=== PATIENT | male | born 1980 | race African-American/Black ===

== ENCOUNTER 2017-06-26 20:25 | Emergency (ER) | payer OTHER, SELFPAY ==
[2017-06-26] MEDS ORDERED: HYDROcodone/Acetaminophen 10/325 mg Tablet ONE (22:48)
[2017-06-26] MEDS ORDERED: AMOXicillin 250 MG CAP ONE (22:49)
[2017-06-26] MEDS ORDERED: Phenergan/Codeine 10-6.25mg/5ml UDCUP ONE (22:49)
[2017-06-26] MEDS ORDERED: Naproxen 500 MG TAB ONE (22:49)
== END 2017-06-26 22:55 | disposition home or self-care (01) ==
LOC: MADERS 20:25
DX: J20.9 Acute bronchitis, unspecified (principal); F17.210 Nicotine dependence, cigarettes, uncomplicated
CPT/HCPCS: 87081; 87430; 99283

== ENCOUNTER 2018-03-25 06:01 | Emergency (ER) | payer OTHER, SELFPAY ==
[2018-03-25] MEDS ORDERED: Benzonatate 100 MG CAP ONE (06:45)
[2018-03-25] MEDS ORDERED: Dexamethasone 4 MG TAB ONE (06:45)
[2018-03-25] MEDS ORDERED: Amoxicillin/Potassium Clav 875 MG TAB ONE (06:45)
== END 2018-03-25 07:00 | disposition home or self-care (01) ==
LOC: MADERS 06:01
DX: J40 Bronchitis, not specified as acute or chronic (principal); F17.210 Nicotine dependence, cigarettes, uncomplicated
CPT/HCPCS: 87804; 99283; J8540

== ENCOUNTER 2019-01-14 15:13 | Emergency (ER) | payer SELFPAY ==
[~2019-01-14 15:13] MED LIST: Sodium Chloride 0.9% 1,000 ML BAG ONE
[2019-01-14] MEDS ORDERED: Ondansetron PF 4 MG/2 ML Vial ONE (15:41)
[2019-01-14 16:11] LABS: #Basophils 0.1 thou/uL (0.0-0.2); #Eosinphils 0.2 thou/uL (0.0-0.7); #Monocytes 0.9 thou/uL (0.11-0.59); #Neutrophils 5.6 thou/uL (1.40-6.50); %Eosinophils 2.1 % (0.0-10.0); %Lymphocytes 30.3 % (21.0-51.0); %Neutrophils 57.5 % (42.0-75.0); Hemoglobin 13.3 g/dL (14.0-18.0); Mean Corpuscular HGB CONC 31.9 g/dL (32.0-36.0); Mean Corpuscular Hemoglobin 27.4 pg (27.0-31.0); Mean Corpuscular Volume 85.9 fL (78.0-98.0); Mean Platelet Volume 7.9 fL (7.4-10.4); Platelet Count 216 thou/uL (130-400); RBC Distribution Width 13.1 % (11.5-14.5); Red Blood Cell (RBC) Count 4.86 mill/uL (4.70-6.10); White Blood Cell (WBC) Count 9.8 thou/uL (4.8-10.8)
[2019-01-14 16:32] LABS: ALT (SGPT) 14 U/L (8-55); AST (SGOT) 19 U/L (5-34); Albumin 4.2 g/dL (3.5-5.0); Alkaline Phosphatase 49 U/L (40-110); Anion Gap 14 mmol/L (10-20); BUN (Urea Nitrogen) 11 mg/dL (8.9-20.6); Bilirubin, Total 0.5 mg/dL (0.2-1.2); CK (CPK) 243 U/L (30-200); Calc. Creatinine Clearance 0 mL/min (70-130); Calcium 8.9 mg/dL (7.8-10.44); Carbon Dioxide 21 mmol/L (22-29); Chloride 105 mmol/L (98-107); Estimated GFR-MDRD Greater than 90; Globulin 2.7 g/dL (2.4-3.5); Glucose 91 mg/dL (70-105); Lipase 7 U/L (8-78); Potassium 3.4 mmol/L (3.5-5.1); Protein, Total 6.9 g/dL (6.0-8.3); Sodium 137 mmol/L (136-145)
[2019-01-14 16:46] LABS: Bilirubin Negative (Negative); Blood, Urine Negative (Negative); Clarity Clear (Clear); Glucose, Urine (Dipstick) Negative (Negative); Leukocyte Negative (Negative); Nitrite Negative (Negative); Protein, Urine (Dipstick) Negative (Neg-Trace); Urobilinogen 0.2 mg/dL (Less than 2)
== END 2019-01-14 17:10 | disposition home or self-care (01) ==
LOC: MADERS 15:13
DX: K52.9 Noninfective gastroenteritis and colitis, unspecified (principal); F17.210 Nicotine dependence, cigarettes, uncomplicated
CPT/HCPCS: 36415; 80053; 81003; 82150; 82550; 83690; 85025; 86140; 96361; 96374; J2405; J7050

== ENCOUNTER 2019-02-11 03:52 | Emergency (ER) | payer SELFPAY ==
[2019-02-11] MEDS ORDERED: Ketorolac Tromethamine 60 MG/2 ML VIAL ONE (04:20)
[2019-02-11] MEDS ORDERED: predniSONE 20 MG TAB ONE (04:20)
== END 2019-02-11 04:30 | disposition home or self-care (01) ==
LOC: MADERS 03:52
DX: S39.012A Strain of muscle, fascia and tendon of lower back, initial encounter (principal); F17.210 Nicotine dependence, cigarettes, uncomplicated; X50.0XXA Overexertion from strenuous movement or load, initial encounter
CPT/HCPCS: 99283; J1885; J7512

== ENCOUNTER 2019-05-06 04:18 | Emergency (ER) | payer SELFPAY ==
[2019-05-06] MEDS ORDERED: Lidocaine 1% w/Epinephrine 1:100K 20 ML VIAL ONE (04:44)
[2019-05-06] MEDS ORDERED: Acetaminophen 500 MG TAB ONE (06:05)
[2019-05-06] MEDS ORDERED: Ibuprofen 800 MG TAB ONE (06:05)
[2019-05-06] MEDS ORDERED: Bacitracin 1 PK ONE (06:06)
--- NOTE | 2019-05-06 07:35 | RAD ---
EXAM: 3 views of the left hand COMPARISON: None HISTORY: Thumb pain after crush injury FINDINGS: 3 views of the hand shows a questionable fracture of the tip of the tuft of the distal phal anx. Multiple radiopaque foreign bodies are seen along the skin surface. No degenerative changes are seen. Moderate soft tissue swelling is present. IMPRESSION: Possible tuft fracture of the distal phalanx.
== END 2019-05-06 06:21 | disposition home or self-care (01) ==
LOC: MADERS 04:18
DX: S67.02XA Crushing injury of left thumb, initial encounter (principal); S61.022A Laceration with foreign body of left thumb without damage to nail, initial encounter; F17.210 Nicotine dependence, cigarettes, uncomplicated; X58.XXXA Exposure to other specified factors, initial encounter
CPT/HCPCS: 12001

== ENCOUNTER 2019-05-13 13:17 | Emergency (ER) | payer SELFPAY ==
[2019-05-13] MEDS ORDERED: Sulfameth/Trimethoprim DS 800-160mg TAB ONE (14:06)
== END 2019-05-13 14:50 | disposition home or self-care (01) ==
LOC: MADERS 13:17
DX: S61.012D Laceration without foreign body of left thumb without damage to nail, subsequent encounter (principal); F17.200 Nicotine dependence, unspecified, uncomplicated; W23.0XXD Caught, crushed, jammed, or pinched between moving objects, subsequent encounter
CPT/HCPCS: 99282

== ENCOUNTER 2019-05-17 05:43 | Emergency (ER) | payer OTHER, SELFPAY | END 2019-05-17 06:34 | disposition home or self-care (01) | LOC: MADERS 05:43 | DX: T81.33XA Disruption of traumatic injury wound repair, initial encounter (principal); T81.40XA Infection following a procedure, unspecified, initial encounter; F17.210 Nicotine dependence, cigarettes, uncomplicated | CPT/HCPCS: 99283 ==

== ENCOUNTER 2019-07-08 04:45 | Emergency (ER) | payer OTHER, SELFPAY ==
[2019-07-08] MEDS ORDERED: Ketorolac Tromethamine 30 MG/ML VIAL ONE (05:17)
[2019-07-08] MEDS ORDERED: Cyclobenzaprine 10 MG TAB ONE (05:17)
== END 2019-07-08 05:30 | disposition home or self-care (01) ==
LOC: MADERS 04:45
DX: M54.5 Low back pain (principal); F17.210 Nicotine dependence, cigarettes, uncomplicated
CPT/HCPCS: 96372; 99283; J1885

== ENCOUNTER 2021-04-15 16:13 | Emergency (ER) | payer SELFPAY ==
[2021-04-15] MEDS ORDERED: Loperamide HCl 2 MG CAP ONE (16:53)
[2021-04-15] MEDS ORDERED: Ketorolac Tromethamine 60 MG/2 ML VIAL ONE (16:53)
[2021-04-16 17:33] LABS: SARS-CoV-2 PCR by NAA DETECTED (NotDetected)
== END 2021-04-15 18:25 | disposition home or self-care (01) ==
LOC: MADERS 16:13
DX: U07.1 COVID-19 (principal); F17.210 Nicotine dependence, cigarettes, uncomplicated
CPT/HCPCS: 87804; 96372; 99284; J1885; U0003; U0005

== ENCOUNTER 2022-06-15 10:04 | Emergency (ER) | payer OTHER, SELFPAY ==
[2022-06-15] MEDS ORDERED: Lidocaine 1% (PF) 30 ML VIAL ONE (10:11)
[2022-06-15] MEDS ORDERED: HYDROcodone/Acetaminophen 5/325 mg Tablet ONE (10:27)
[2022-06-15 11:09] LABS: #Basophils 0.3 thou/uL (0.0-0.2); #Eosinphils 0.4 thou/uL (0.0-0.7); #Lymphocytes 2.7 thou/uL (1.20-3.40); #Monocytes 0.8 thou/uL (0.11-0.59); #Neutrophils 6.4 thou/uL (1.40-6.50); %Basophils 2.8 % (0.0-1.0); %Eosinophils 3.7 % (0.0-10.0); %Lymphocytes 25.8 % (21.0-51.0); %Monocytes 7.8 % (0.0-10.0); %Neutrophils 59.9 % (42.0-75.0); Hemoglobin 13.5 g/dL (14.0-18.0); Mean Corpuscular HGB CONC 32.6 g/dL (32.0-36.0); Mean Corpuscular Hemoglobin 27.8 pg (27.0-31.0); Mean Corpuscular Volume 85.3 fl (78.0-98.0); Mean Platelet Volume 9.4 fL (7.4-10.4); Platelet Count 230 10x3/uL (130-400); RBC Distribution Width 13.7 % (11.5-14.5); Red Blood Cell (RBC) Count 4.84 mill/uL (4.70-6.10); White Blood Cell (WBC) Count 10.6 10x3/uL (4.8-10.8)
[2022-06-15] MEDS ORDERED: CEFAZOLIN 2 GM VIAL ONE ×2 (11:15→11:17)
[2022-06-15 11:19] LABS: INR-International Normal Ratio 0.9; PTT 22.9 sec (22.9-36.1); Prothrombin Time 12.1 sec (12.0-14.7)
[2022-06-15] MEDS ORDERED: Water For Inject, Bacteriostat 30 ML ONE (11:19)
[2022-06-15 11:23] LABS: ALT (SGPT) 18 U/L (8-55); AST (SGOT) 27 U/L (5-34); Albumin 4.4 g/dL (3.5-5.0); Alkaline Phosphatase 54 U/L (40-110); Anion Gap 12 mmol/L (10-20); BUN (Urea Nitrogen) 16 mg/dL (8.9-20.6); Bilirubin, Total 0.2 mg/dL (0.2-1.2); Calc. Creatinine Clearance 0 mL/min (70-130); Calcium 8.9 mg/dL (7.8-10.44); Carbon Dioxide 21 mmol/L (22-29); Chloride 109 mmol/L (98-107); Estimated GFR 104; Globulin 3.1 g/dL (2.4-3.5); Glucose 108 mg/dL (70-105); Potassium 4.4 mmol/L (3.5-5.1); Protein, Total 7.5 g/dL (6.0-8.3); Sodium 138 mmol/L (136-145)
[2022-06-15] MEDS ORDERED: Boostrix 0.5 ML (Tdap) VIAL (>/=7 yrs of age) ONE (11:38)
== END 2022-06-15 11:57 | disposition short-term general hospital (02) ==
LOC: MADERS 10:04
DX: S62.634B Displaced fracture of distal phalanx of right ring finger, initial encounter for open fracture (principal); F17.210 Nicotine dependence, cigarettes, uncomplicated; W24.0XXA Contact with lifting devices, not elsewhere classified, initial encounter; Z23 Encounter for immunization
CPT/HCPCS: 36415; 64450; 80053; 85025; 85610; 85730; 86850; 86900; 86901; 90471; 90715; 96372; J2001